=== PATIENT | female | born 1965 | race Caucasian/White ===

== ENCOUNTER 2016-11-17 14:41 | Inpatient (IN) | payer BC ==
[~2016-11-17] VITALS: Ht 162.6 cm; Wt 114.6 kg
[2016-12-02] MEDS ORDERED: LISI20TA PO (06:09)
[2016-12-02] MEDS ORDERED: LISI20TA3 PO (06:09)
[2016-12-02] MEDS ORDERED: LEVO50TA4 PO (06:12)
[2016-12-02] MEDS ORDERED: ASPI-110 PO (06:12)
[2016-12-02] MEDS ORDERED: DULE200A INH (06:12)
[2016-12-02] MEDS ORDERED: METO100T9 PO (06:12)
[2016-12-02] MEDS ORDERED: METOPROLOL TARTRATE 25 MG TAB ONE (06:15)
[2016-12-02 06:17] LABS: BACTERIA, URINE RARE /hpf; BLOOD, URINE NEG (NEG); COMMENT (UR) CULT NOT INDICATED; CULTURE IF INDICATED CULT NOT INDICATED; GLUCOSE,URINE NEG (NEG); HYALINE CAST, URINE 1 /lpf (RARE); KETONE, URINE NEG (NEG); MUCUS URINE FEW /lpf (OCC); NITRITE,URINE NEG (NEG); PH, URINE 5.5 (5.0-8.5); SQUAMOUS EPITHELIAL CELL URINE 6 /hpf (0-5); URINE COLOR YELLOW (YELLW/STRAW)
[2016-12-02 06:19] VITALS: BP 136/97; PULSE 68; RESP 20; TEMP 98.3; O2SAT 94
[2016-12-02] MEDS ORDERED: CHLORHEXIDINE GLUCONATE 2 % 1 PACK (2 CLOTHS) TOPICAL PRN (06:30)
[2016-12-02] MEDS ORDERED: SODIUM CHLORID 0.9% 500 ML IV PRN (06:30)
[2016-12-02] MEDS ORDERED: INSULIN HUMAN REGULAR 1,000 UNITS/10 ML VIAL SQ PRN (06:30)
[2016-12-02] MEDS ORDERED: POVIDONE IODINE 5% (ANTISEPSIS KIT) 4 APPLICATIONS EACH NARE PRN (06:30)
[2016-12-02] MEDS ORDERED: METOPROLOL TARTRATE 25 MG TAB PO PRN (06:30)
[2016-12-02] MEDS ORDERED: LACTATED RINGER'S 1000 ML IV PRN (06:30)
[2016-12-02] MEDS ORDERED: [UNRECOGNIZED DRUG - OTHER] P-ARTICULR ONE (07:15)
[2016-12-02] MEDS ORDERED: BUPIVACAINE LIPOSO 1.3% P-ARTICULR ONE (07:15)
[2016-12-02] MEDS ORDERED: DEXAMETHASONE P-ARTICULR ONE (07:15)
[2016-12-02] MEDS ORDERED: MORPHINE P-ARTICULR ONE (07:15)
[2016-12-02] MEDS ORDERED: ARTIFICIAL TEARS OPTH OINT 3.5 APPLIC/3.5 GM TUBO ONE (07:24)
[2016-12-02] MEDS ORDERED: MIDAZOLAM HCL 2 MG/2 ML VIAL ONE (07:24)
[2016-12-02] MEDS ORDERED: fentaNYL CITRATE 250 MCG/5 ML AMP ONE (07:24)
[2016-12-02] MEDS ORDERED: ACETAMINOPHEN 1000 MG/100 ML VIAL IV ONE (07:24)
[2016-12-02] MEDS ORDERED: ceFAZolin 2 GM PREMIX 50 ML ONE (07:38)
[2016-12-02] MEDS ORDERED: FAMOTIDINE 20 MG/2 ML VIAL ONE (07:48)
--- NOTE | 2016-12-02 08:32 | EKG ---
Date Performed: 12/02/2016 Time Performed: 06:22:56 PTAGE: 51 years EKG: Sinus rhythm Leftward axis Poor R wave progression - probable normal variant Extensive ST-T changes are nonspecif ic Borderline ECG NO PREVIOUS TRACING DOCTOR: Timbo Lynn Interpretating Date/Time 12/02/2016 08:30:41
[2016-12-02] MEDS ORDERED: MAGNESIUM HYDROXIDE SUSP 30 ML CUP PO PRN (10:15)
[2016-12-02] MEDS ORDERED: ONDANSETRON HCL 4 MG/2 ML VIAL IV PUSH PRN (10:15)
[2016-12-02] MEDS ORDERED: oxyCODONE/ACETAMINOPHEN 5 MG/325 MG TAB PO PRN ×2 (10:15)
[2016-12-02] MEDS ORDERED: Post-op Orders (for Pharmacy) MISC OTHER ONE (10:15)
[2016-12-02] MEDS ORDERED: ACETAMINOPHEN 325 MG TAB PO PRN (10:15)
[2016-12-02] MEDS ORDERED: RESP: ALBUTEROL 2.5 MG/3 ML NEB (PRN) NEB (10:15)
--- NOTE | 2016-12-02 10:18 | PD.OP ---
cc: Gab Flores MD; Elmer Payne MD Operative Report Date of Surgery: Dec 02, 2016 Preoperative Diagnosis: Postoperative Diagnosis: Procedure: 1. Robotic Right Lower Lobe Wedge Resection 2. Right Paratracheal Lymph Node Dissection. 3. Intercostal Nerve Block . Surgeon: Gab Flores Radio Communications Mechanician(s): Sadie Cordon . Operation and Findings: PREOPERATIVE DIAGNOSIS 1. Bilateral Lung Infiltrates 2. Mediastinal Adenopathy 3. COPD 4. Hepatitis C POSTOPERATIVE DIAGNOSIS same PROCEDURES 1. Robotic Right Lower Lobe Wedge Resection 2. Right Paratracheal Lymph Node Dissection. 3. Intercostal Nerve Block SURGEON Gab Flores MD [id number] PROGRAMMER Jailyn Cordon CSFA ANESTHESIA General endotracheal. IOS PROGRAMMER ANGELIQUE Green MD OPERATIVE TIME Please see record. COMPLICATIONS None. INDICATION FOR PROCEDURE The patient is a 51 yo with multiple bilateral parenchymal abnormalities and mediastinal LN. DESCRIPTION OF PROCEDURE The patient was brought to the operating suite and placed in supine position. Following satisfactory induction of general endotracheal anesthesia, the patient was placed in the left lateral decubitus position. The right chest was then prepped and draped in the usual sterile fashion. Under direct vision, camera was introduced in the 8th ICS and insufflation was begun into the chest . Instrument arm 1 and 2 were placed. Infiltrative lesion in the basilar segment of the lower lobe was identified. This area was resected with a robotic stapler and sent for histological and microbiological analysis. Right paratracheal lymph nodes (R4) were dissected and removed. These were also sent for histological and microbiological analysis. A 28-Grenadian chest tube was placed. Intercostal nerve block was performed at the level of the incision and 3 rib spaces above and below using Exparel with Decadron solution. Strict hemostasis was assured. The robot was undocked and the port sites closed in 2 layers. The patient tolerated the procedure well and postoperatively went to recovery in stable condition. Gab Flores MD Dec 02, 2016 10:18
[2016-12-02] MEDS ORDERED: SUGAMMADEX SODIUM 200 MG/2 ML VIAL IV PUSH ONE ×2 (10:36)
[2016-12-02] MEDS: KETOROLAC TROMETHAMINE 30 MG/ML (IVP) VIAL IV PUSH SCH ×2 (11:00→17:00)
[2016-12-02] MEDS ORDERED: *diphenhydrAMINE HCL 50 MG/ML VIAL PERIprocedural Use ONLY ONE (11:23)
[2016-12-02] MEDS ORDERED: DO NOT ADM ANY ANTICOAGULANT DRUGS PRN (11:30)
[2016-12-02] MEDS ORDERED: LACTATED RINGER'S 1000 ML INJ 2,000 ML IV ONE (12:00)
[2016-12-02] MEDS ORDERED: SODIUM CHLORID 0.9% 500 ML INJ 500 ML IV ONE (12:00)
[2016-12-02] MEDS ORDERED: ePHEDrine/NS 25 MG/5 ML SYR IV ONE (12:00)
[2016-12-02] MEDS ORDERED: PROPOFOL 200 MG/20 ML AMP IV ONE (12:00)
[2016-12-02] MEDS ORDERED: PHENYLEPH/NS 1000 MCG/10 ML SYR IV ONE (12:00)
[2016-12-02] MEDS ORDERED: ONDANSETRON HCL 4 MG/2 ML VIAL IV PUSH ONE (12:00)
--- NOTE | 2016-12-02 12:04 | RADRPT ---
EXAM DATE/TIME: 12/02/2016 11:24 [facility] COMPARISON: No previous studies available for comparison. INDICATIONS : S/p thoracotomy. MEDICAL HISTORY : Unobtainable. SURGICAL HISTORY : Unobtainable. ENCOUNTER: Initial ACUITY: 1 day PAIN SCORE: 10/10 LOCATION: Bilateral chest FINDINGS: Portable AP semiupright single view of the chest demonstrates a normal-sized cardiac silhouette with fullness to the mediastinum. There is possible opacity overlying the left hilar region. Lungs are und erinflated. Right chest tube is present and no pneumothorax is visualized. Bones and soft tissues dem onstrate no acute finding. CONCLUSION: 1. Right chest tube is present and no pneumothorax is visualized. 2. Fullness to the mediastinum with possible opacity overlying the left hilar region. Suggest attenti on to this at followup imaging or correlate with any prior CT scans. Geoffrey Woodall MD on December 02, 2016 at 12:00 Board Certified Radiologist. This report was verified electronically.
[2016-12-02] MEDS: ACETAMINOPHEN 1000 MG/100 ML VIAL IV SCH ×2 (13:00→18:22)
[2016-12-02 16:21] VITALS: BP 126/79; PULSE 74; RESP 20; TEMP 98.1; O2SAT 97
[2016-12-02 17:00] VITALS: PULSE 70
[2016-12-02 18:00] VITALS: PULSE 74
[2016-12-02 20:00] VITALS: BP 136/86; PULSE 71; RESP 20; TEMP 98.9; O2SAT 96
[2016-12-02] MEDS ORDERED: PANTOPRAZOLE SOD 40 MG DELAYED RELEASE TAB PO SCH (21:00)
[2016-12-02] MEDS ORDERED: DOCUSATE CALCIUM 240 MG CAP PO SCH (21:00)
[2016-12-02 21:14] VITALS: O2SAT 95
[2016-12-02] MEDS: RESP: ALBUTEROL 2.5 MG/3 ML NEB (SCH) NEB (22:00)
[2016-12-03] VITALS (16 sets, daily range): BP systolic 108–123; BP diastolic 60–69; PULSE 56–73; RESP 16–20; TEMP 97.6–98.4; O2SAT 93–97
[2016-12-03] MEDS: KETOROLAC TROMETHAMINE 30 MG/ML (IVP) VIAL IV PUSH SCH ×2 (00:23→05:50)
[2016-12-03] MEDS: ACETAMINOPHEN 1000 MG/100 ML VIAL IV SCH ×2 (00:24→05:51)
[2016-12-03] MEDS: RESP: ALBUTEROL 2.5 MG/3 ML NEB (SCH) NEB ×2 (04:18→09:17)
--- NOTE | 2016-12-03 06:41 | RADRPT ---
EXAM DATE/TIME: 12/03/2016 02:48 [facility] COMPARISON: CHEST SINGLE AP, December 02, 2016, 11:24. INDICATIONS : Shortness of breath. MEDICAL HISTORY : None. SURGICAL HISTORY : None. ENCOUNTER: Initial ACUITY: 1 day PAIN SCORE: 0/10 LOCATION: Bilateral chest FINDINGS: A single view of the chest demonstrates a right chest tube in place with no pneumothorax. The right l lexus is clear. There continues to be prominence of the left perihilar area unchanged compared to the p rior study.. Otherwise the rest of the left lung is clear. There are no pleural effusions. Heart size is stable. The bony structures are stable.. CONCLUSION: 1. Right chest tube in place. No pneumothorax. 2. No significant change compared to the prior exam. Chucho Amato MD on December 03, 2016 at 6:37 Board Certified Radiologist. This report was verified electronically.
[2016-12-03] MEDS ORDERED: NON-FORMULARY DRUG (Mometasone-Formoterol 120 Act Inh (Dulera 120 Act Inh) 2 PUFF) INH SCH (09:00)
[2016-12-03] MEDS ORDERED: METOPROLOL TARTRATE 25 MG TAB PO SCH (09:00)
[2016-12-03] MEDS ORDERED: LEVOTHYROXINE SODIUM 50 MCG TAB PO SCH (09:00)
--- NOTE | 2016-12-03 11:42 | PD.CAR.PN ---
CVT Progress Note Subjective/Hospital Course: 51 female symptoms of cough and progressive SOB over past few months , Bronchoscopy revealed multiple areas of abnormality in both the right and left lungs with tree-in bud opacities PMH: COPD, Hep C , HTN, hypothyroidism surgery : 12/02 Robotic Right Lower Lobe Wedge Resection, Right Paratracheal Lymph Node Dissection. 12/03 no air leak in chest tube, drained only 19 cc/ 12 hrs chest tube removed without difficulty pt has vaseline, air tight dressing in place will check f/u CXR if stable , then possible dc home today Objective: GENERAL: SKIN: Warm and dry. 3 small incision right posterior chest wall intact and well approximated HEAD: Normocephalic. EYES: No scleral icterus. No injection or drainage. NECK: Supple, trachea midline. No JVD or lymphadenopathy. CARDIOVASCULAR: Regular rate and rhythm without murmurs, gallops, or rubs. RESPIRATORY: Breath sounds equal bilaterally., sightly diminished in bases No accessory muscle use. chest tube removed without difficulty GASTROINTESTINAL: Abdomen soft, non-tender, nondistended. MUSCULOSKELETAL: No cyanosis, or edema. BACK: Nontender without obvious deformity. No CVA tenderness. Vital Signs Date Time Temp Pulse Resp B/P Pulse Ox O2 Delivery O2 Flow Rate FiO2 12/03/16 11:15 97.6 61 16 123/68 93 12/03/16 10:01 60 12/03/16 09:16 95 Nasal Cannula 3.00 12/03/16 09:00 58 12/03/16 08:00 62 12/03/16 08:00 98.2 73 16 117/69 96 12/03/16 07:00 57 12/03/16 06:00 71 12/03/16 05:00 62 12/03/16 04:00 98.0 64 20 114/60 97 12/03/16 04:00 62 12/03/16 03:00 57 12/03/16 02:00 62 12/03/16 00:00 98.4 63 20 108/60 96 12/02/16 21:14 95 Nasal Cannula 3.00 12/02/16 20:00 98.9 71 20 136/86 96 12/02/16 20:00 71 12/02/16 18:00 74 12/02/16 17:00 70 12/02/16 16:21 98.1 74 20 126/79 97 4/25/17 14:30 68 12 144/75 94 Nasal Cannula 2 12/02/16 14:00 97.6 63 12 136/71 94 Nasal Cannula 2 12/02/16 13:30 62 12 132/74 94 Nasal Cannula 2 12/02/16 13:00 62 12 143/72 95 Nasal Cannula 3 12/02/16 12:45 63 12 134/71 96 Nasal Cannula 3 12/02/16 12:15 58 12 131/80 95 Nasal Cannula 3 12/02/16 12:00 55 12 131/75 95 Nasal Cannula 3 12/02/16 11:45 53 12 135/73 95 Nasal Cannula 3 12/02/16 11:30 57 12 140/69 94 Nasal Cannula 3 Telemetry: NSR (1) COPD (chronic obstructive pulmonary disease) Plan: on nebs (2) right lung mass Plan: await path, chest tube removed without difficulty on room air eval for dc home later today (3) Hypothyroidism Plan: home meds resumed (4) Hypertension Kenzie Devi Dec 03, 2016 11:42
--- NOTE | 2016-12-03 13:34 | HHI.DS ---
Discharge Summary Admission Date Dec 02, 2016 at 05:31 Discharge Date: Dec 03, 2016 Admitting Diagnosis right lung mass (1) COPD (chronic obstructive pulmonary disease) Diagnosis: Principal (2) Hypothyroidism Diagnosis: Principal (3) Hypertension Diagnosis: Principal (4) right lung mass Diagnosis: Principal (5) right lower lobectomy Diagnosis: Secondary Procedures 1. Robotic Right Lower Lobe Wedge Resection 12/02 2. Right Paratracheal Lymph Node Dissection. Brief History 51 female symptoms of cough and progressive SOB over past few months , Bronchoscopy revealed multiple areas of abnormality in both the right and left lungs with tree-in bud opacities PMH: COPD, Hep C , HTN, hypothyroidism surgery : 12/02 Robotic Right Lower Lobe Wedge Resection, Right Paratracheal Lymph Node Dissection. Significant Findings Laboratory Tests Test 12/02/16 06:00 Urine Turbidity HAZY (CLEAR) Urine Bacteria RARE /hpf (NONE) Urine Mucus FEW /lpf (OCC) Imaging Last Impressions Chest X-Ray 12/03/16 0500 Signed Impressions: Service Date/Time: Thursday, December 03, 2016 02:48 - CONCLUSION: 1. Right chest tube in place. No pneumothorax. 2. No significant change compared to the prior exam. Chucho Amato MD PE at Discharge GENERAL: SKIN: Warm and dry.incisions x 2 to right posterolateral chest wall intact and well approximated / dressing in place to chest tube multi site leasing consultant: Normocephalic. EYES: No scleral icterus. No injection or drainage. NECK: Supple, trachea midline. No JVD or lymphadenopathy. CARDIOVASCULAR: Regular rate and rhythm without murmurs, gallops, or rubs. RESPIRATORY: Breath sounds equal bilaterally. No accessory muscle use. GASTROINTESTINAL: Abdomen soft, non-tender, nondistended. MUSCULOSKELETAL: No cyanosis, or edema. BACK: Nontender without obvious deformity. No CVA tenderness. Hospital Course surgery : 12/02 Robotic Right Lower Lobe Wedge Resection, Right Paratracheal Lymph Node Dissection. 12/03 no air leak in chest tube, drained only 19 cc/ 12 hrs chest tube removed without difficulty pt has vaseline, air tight dressing in place will check f/u CXR if stable , then possible dc home today Pt Condition on Discharge: Good Discharge Disposition: Discharge Home Discharge Instructions DIET: Follow Instructions for: As Tolerated, No Restrictions Activities you can perform: Full Weight Bearing, Shower Only-No Bath Activities to avoid: Lifting/Bending, Prolonged Standing, Strenuous Activity, Driving Additional Activity Instructio: no driving for 2 weeks, no lifting > 8 lbs or gallon of milk Kenzie Devi Dec 03, 2016 13:34
--- NOTE | 2016-12-03 13:35 | RADRPT ---
EXAM DATE/TIME: 12/03/2016 12:24 [facility] COMPARISON: CHEST SINGLE AP, December 03, 2016, 2:48. INDICATIONS : Post chest tube removal. Cough. MEDICAL HISTORY : None. SURGICAL HISTORY : None. ENCOUNTER: Subsequent ACUITY: 2 days PAIN SCORE: 0/10 LOCATION: Right chest FINDINGS: A single view of the chest demonstrates the lungs to be symmetrically aerated without evidence of mas s, infiltrate or effusion. The heart size is mildly enlarged with no perihilar edema. There are mult iple overlying electrocardiogram leads. Osseous structures are intact. CONCLUSION: Cardiomegaly with no acute cardiopulmonary disease. There is no evidence of pneumonia . Toni Gomez MD on December 03, 2016 at 13:32 Board Certified Radiologist. This report was verified electronically.
[2016-12-03] MEDS ORDERED: BUDESONIDE-FORMOTEROL 160/4.5 MCG INHALER INH SCH (21:00)
== END 2016-12-03 15:15 | disposition home or self-care (01) | DRG 168 ==
LOC: HSDI 12-02 05:31 → HCIN 12-02 16:33
PROVIDERS: ADMIT Thoracic Surgery (Cardiothoracic Vascular Surgery); ATTEND Thoracic Surgery (Cardiothoracic Vascular Surgery)
PROC: 07B73ZX Excision of Thorax Lymphatic, Percutaneous Approach, Diagnostic (ICD-10-PCS; 2016-12-02)
PROC: 3E0T3CZ (ICD-10-PCS; 2016-12-02)
PROC: 0W9930Z Drainage of Right Pleural Cavity with Drainage Device, Percutaneous Approach (ICD-10-PCS; 2016-12-02)
PROC: 8E0W4CZ Robotic Assisted Procedure of Trunk Region, Percutaneous Endoscopic Approach (ICD-10-PCS; 2016-12-02)
PROC: 0BBF4ZX Excision of Right Lower Lung Lobe, Percutaneous Endoscopic Approach, Diagnostic (ICD-10-PCS; principal; 2016-12-02 07:49)
DX: J44.9 Chronic obstructive pulmonary disease, unspecified (principal); I10 Essential (primary) hypertension; R59.0 Localized enlarged lymph nodes; R91.8 Other nonspecific abnormal finding of lung field; B19.20 Unspecified viral hepatitis C without hepatic coma; E03.9 Hypothyroidism, unspecified
CPT/HCPCS: 71010; 81001; 86850; 86900; 86901; 86920; 87015; 87070; 87102; 87116; 87205; 87206; 88305; 88307; 88312; 93005; 94150; 94640; 94664; C9290; J0131; J0690; J1100; J1200; J1885; J2250; J2270; J2370; J2405; J3010; J7040; J7120; J7613